=== PATIENT | female | born 2005 | race Caucasian/White ===

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

== ENCOUNTER 2023-12-31 17:25 | Emergency (ER) | payer MEDICAID, SELFPAY ==
[2023-12-31 17:28] VITALS: BP 123/45; PULSE 92; RESP 16; TEMP 37.1; O2SAT 98
--- NOTE | 2023-12-31 17:37 | ED.GENADUL_ITS ---
Discharge Plan Disposition Patient Disposition: Home Condition: Improving Discharge Details Chief Complaint: Abd Prob Clinical Impression: Gastroenteritis Primary Care Provider: Glendy Gudino ED Provider: Ken Bowden Home Meds and New Rx's Prescriptions: No Action benzoyl peroxide 5 % gel 1 applic topical DAILY Qty: 90 2RF Rx Instructions: Apply daily tretinoin 0.05 % lotion 1 applic topical QHS Qty: 45 2RF Rx Instructions: Apply nightly Mirena 20 mcg/24 hours (5 yrs) 52 mg intrauterine device 1 device intrauterine ONCE Rx Instructions: as a single dose albuterol sulfate 90 mcg/actuation aerosol powdr breath activated 2 inh inhalation Q4H PRNQty: 1 0RF ondansetron 4 mg tablet,disintegrating 4 mg PO .q8hr PRN Patient Comments: DISSOLVE ONE TABLET ON THE TONGUE EVERY 8 HOURS NEEDED FOR NAUSEA AND VOMITING Discharge Instructions Instructions: Gastroenteritis (ED) HPI General Date/Time Provider Initiated Documentation: 12/31/23 17:26 . HPI Narrative: 18-year-old female presents with nausea vomiting diarrhea over the last day. Feels chilled. Abdominal pain generalized in nature. No history of abdominal surgeries. Related Data Home Medications Medication Instructions Recorded Confirmed levonorgestrel 21 mcg/24 hours (8 1 device intrauterine ONCE 07/21/20 12/31/23 yrs) 52 mg intrauterine device (Mirena) benzoyl peroxide 5 % topical gel 1 applic topical DAILY #90 grams 10/21/21 12/31/23 tretinoin 0.05 % lotion 1 applic topical QHS #45 grams 10/21/21 12/31/23 albuterol sulfate 90 mcg/actuation 2 inh inhalation Q4H PRN #1 ea 10/11/22 12/31/23 breath activated powder inhaler ondansetron 4 mg disintegrating 4 mg PO .q8hr PRN 12/31/23 12/31/23 tablet Previous Rx's Medication Instructions Recorded benzoyl peroxide 5 % topical gel 1 applic topical DAILY #90 grams 10/21/21 tretinoin 0.05 % lotion 1 applic topical QHS #45 grams 10/21/21 albuterol sulfate 90 mcg/actuation 2 inh inhalation Q4H PRN #1 ea 10/11/22 breath activated powder inhaler Allergies Allergy/AdvReac Type Severity Reaction Status Date / Time No Known Allergies Allergy Verified 12/31/23 17:29 General Stated Complaint: Abd Prob CHIDI: 3 Review of Systems Narrative: Review of Systems Constitutional: negative Eyes: negative ENT: negative Cardiovascular: negative Respiratory: negative Gastrointestinal: Nausea vomiting diarrhea : negative Musculoskeletal: negative Skin: negative Neurologic: negative Psych: negative Exam Narrative Exam Narrative: Physical Examination General: alert, awake, cooperative, appears uncomfortable HEENT: normocephalic, atraumatic; PERRL, EOM intact, conjunctiva normal; no nasal discharge; moist mucous membranes, oral and pharyngeal mucosa normal, tolerating secretions Neck: supple, trachea midline; full ROM Chest: normal to inspection Respiratory: normal respiratory effort, speaking in full sentences, clear to auscultation, no wheezing, rales or rhonchi Cardiac: regular rate, regular rhythm, S1S2 intact, no murmurs rubs or gallops GI: abdomen soft, non-tender, non-distended; no palpable mass or hepatosplenomegaly Skin: no lesions, rashes or trauma appreciated Neuro: AAOx3, normal speech, moving all extremities Course Vital Signs Vital signs: Vital Signs Temperature 37.1 C 12/31/23 17:28 Pulse 92 H 12/31/23 17:28 Respiratory Rate 16 12/31/23 17:28 Blood Pressure 123/45 L 12/31/23 17:28 Pulse Oximetry 98 12/31/23 17:28 Temperature 37.1 C 12/31/23 17:28 Temperature Source Oral 12/31/23 17:28 Pulse 92 H 12/31/23 17:28 Respiratory Rate 16 12/31/23 17:28 Blood Pressure 123/45 L 12/31/23 17:28 Blood Pressure Position Sitting 12/31/23 17:28 Pulse Oximetry 98 12/31/23 17:28 Oxygen Delivery Method Room Air 12/31/23 17:28 Oxygen Flow Rate 0 12/31/23 17:28 Pain Level 7 12/31/23 17:28 Medical Decision Making 18-year-old female presents with nausea vomiting diarrhea abdominal discomfort, sensation of chills, hemodynamically stable however appears uncomfortable, abdomen soft nontender nondistended nonperitoneal, consider viral gastroenteritis versus foodborne illness versus colitis versus enteritis versus must consider appendicitis versus cholecystitis. Will obtain basic labs, urinalysis, fluids antiemetics close reassessment if no improvement consider imaging 21: 32 patient was comfortably no acute distress labs imaging largely unremarkable. Likely gastroenteritis viral in nature. Home care instructions and return precautions given Quality:SDOH Health Related Social Needs: No Data to Display PFSH All Active Problems (Updated 12/31/23 @ 21:33 by Ken Bowden MD) Gastroenteritis (Acute) GERD (gastroesophageal reflux disease) (Chronic) Acne (Acute) Anxiety (Chronic) Depression (Chronic) suicidal ideations: 2017 Medical History Concussion (03/20/19) COVID-19 11/2021 moderate symptoms, vaccinated Grieving family (~04/2018) Father recently from [place] while Nettie was in [place] for [place]. Suicidal ideation admit 2017 Family History Mother Healthy adult Father Healthy adult Sister No problems noted. Grandfather Diabetes MGF Grandmother Heart disease s/p triple cardiac bypass Hyperlipidemia MGM Other No problems noted. Social History Smoking/Tobacco Use Status: Former Tobacco Use Smoking risk assessment performed?: Yes (OUTSIDE) Alcohol Intake: current Alcohol Intake frequency: holidays/special occasions only Drug use: Occasionally Substance use type: marijuana Housing: apartment Pets and animals: Yes Pets and animals: cat(s), dog(s) and turtle(s) Seatbelt use: always Helmet use: Yes Helmet use: sometimes Water heater temp set <120 deg: Yes Fire extinguisher in home: Yes Carbon monox detector in home: Yes Firearms in home: No Do you feel safe at home: Yes Do you feel safe in your relationship?: Yes
[2023-12-31] MEDS: Ondansetron 4 MG/2 ML VIAL IVP (18:01)
[2023-12-31 18:07] LABS: Abs Immature Grans 0.05 10^3/uL (0.0-0.06); Absolute Basophil Count 0.03 10^3/uL (0.0-0.2); Absolute Eosinophil Count 0.14 10^3/uL (0.0-0.7); Absolute Monocyte Count 0.71 10^3/uL (0.1-0.8); Absolute Neutrophil Count 11.04 10^3/uL (1.2-6.7); Basophils % 0.2; Eosinophils % 1.1; HCT 41.2 % (36.0-46.0); HGB 14.4 g/dL (11.2-15.7); Immature Grans % 0.4; Lymphocytes % 8.4; MCH 29.6 pg (27.0-33.0); MCV 85 fL (80-95); MPV 11.3 fL (8.0-11.0); Monocytes % 5.4; Neutrophils % 84.5; Platelet Count 161 10^3/uL (130-400); RBC 4.86 10^6/uL (3.93-5.22); RDW-SD 36.5 fL; WBC 13.07 10^3/uL (4.4-10.8)
[2023-12-31] MEDS: Normal Saline 1,000 ML 1000 ML IV ×2 (18:12→20:06)
[2023-12-31 18:51] LABS: ALT 16 U/L (14-59); AST 11 U/L (15-37); Albumin 3.7 g/dL (3.4-5.0); Alkaline Phosphatase 58 U/L (46-116); Anion Gap 10.1 mmol/L (3-11); BUN 6 mg/dL (7-18); Bilirubin, Total 0.9 mg/dL (0.2-1.0); CO2 24.9 mmol/L (21.0-32.0); CREATININE 0.9 mg/dL (0.55-1.02); Calcium 8.3 mg/dL (8.5-10.1); Chloride 106 mmol/L (98-107); Estimated GFR 93.86 (mL/min/1.73m2); Glucose 93 mg/dL (74-106); Lipase 24 U/L (16-77); Potassium 3.5 mmol/L (3.5-5.1); Sodium 141 mmol/L (136-145); Total Protein 6.6 g/dL (6.4-8.2)
[2023-12-31 19:45] LABS: Bilirubin Negative (Negative); Blood Negative (Negative); Clarity Clear (Clear); Glucose Negative (Negative); Ketones 15 mg/dL (Negative); Leukocyte Esterase Negative (Negative); Nitrite Negative (Negative); Specific Gravity 1.025 (1.005-1.025); Urobilinogen 0.2 mg/dL (Up to 0.2)
--- NOTE | 2023-12-31 19:45 | DI.CT_ITS ---
Exam(s) CT ABDOMEN PELVIS W EXAM: CT ABDOMEN PELVIS W CLINICAL HISTORY: nausea vomiting diarrhea. TECHNIQUE: Imaging Protocol: Axial computed tomography images with coronal and sagittal reformatted images were created and reviewed CONTRAST MATERIAL: Intravenous: Omnipaque-350 100cc Oral: None COMPARISON: CT CT ABDOMEN PELVIS W from 05/17/2021 FINDINGS: VISUALIZED LUNG BASES: No nodules nor pleural effusions evident. ABDOMEN: There is no ascites. There is mild stranding of the mesenteric fat at the level of the ligament of T nicholas. There are few slightly prominent left para-aortic lymph nodes below this level. LIVER: There are no focal hepatic lesions evident. No dilated intrahepatic ducts. GALLBLADDER/BILIARY: No obvious gallbladder pathology. CBD is not dilated. PANCREAS: No evidence of pancreatic mass nor dilatation of the pancreatic duct. SPLEEN: Spleen is not enlarged. No obvious intrasplenic lesions. Splenic and portal veins are paten t. ADRENALS: There are no significant adrenal masses. KIDNEYS:No cysts evident. No solid renal masses. No calculi nor hydronephrosis.. ABDOMINAL AORTA: Abdominal aorta is not enlarged. LYMPH NODES:As above. There few slightly enlarged lymph nodes left para-aortic region ABDOMINAL WALL: No evidence of significant anterior abdominal wall nor inguinal hernia. GI: There is no evidence of bowel obstruction, free air, nor abscess. PELVIS: GI: No evidence of appendicitis.No evidence of sigmoid diverticulitis. LYMPH NODES: There is no intrapelvic nor inguinal adenopathy. REPRODUCTIVE: There is an IUD again noted in the uterus which remains in satisfactory position within the endometrial canal of the anteverted uterus. Ovaries appear age-appropriate size. There is a cy st in the inferior aspect of the right ovary measuring 3.8 by 2.9 cm by 2.8 cm. Probably dominant fo llicular cyst. There is no free fluid in the pelvis. URINARY BLADDER: Unremarkable. There is a round calcification measuring 4 mm in the region of the lo wer left ureter. Is difficult to determine if this is a calculus in the vicinity of the left uretero vesical junction or a new phlebolith which was not evident on the prior CT study of 05/17/2021. Neve rtheless, there is no dilatation of the left collecting system above this level. OSSEOUS: No fractures and no significant osseous lesions. IMPRESSION: 1. Left-sided 4 millimeter pelvic calcification intimately associated with the left ureterovesical ju nction region but probably representing a new phlebolith as opposed to a calculus within the lower le ft ureter. There is no dilatation of the collecting system above this level 2. IUD remains in satisfactory position within the uterine canal. There is a 3.8 cm simple appearing probable follicular cyst in the right ovary. No surrounding free fluid. 3. No evidence of appendicitis nor diverticulitis. 4. There are unchanged left para-aortic densities. Possibly slightly prominent lymph nodes although the appearance may suggest that these are veins coming from the left iliac vein and draining into the left renal vein. These are unchanged from 05/17/2021. RADIATION DOSE DELIVERED: 1,067.59mGy.cm Total DLP DATA REPOSITORY: All CT scans at this facility are submitted to the National Radiology Data Registry (NRDR) Dose Index Registry (DIR) with the [employer] (ACR). RADIATION OPTIMIZATION: All CT scans at this facility use at least one of these dose optimization te chniques: automated exposure control; mA and/or kV adjustment per patient size (includes targeted exa ms where dose is matched to clinical indication); or iterative reconstruction.
[2023-12-31] MEDS: ACETAMINOPHEN 1,000 MG/100 ML BTL 400 MG IVPB (20:05)
[2023-12-31] MEDS: Famotidine 20 MG/2 ML VIAL IVP (20:06)
[2023-12-31] MEDS: Omnipaque 350 MG/ML 100 ML BTL IJ (20:08)
[2023-12-31] MEDS: Normal Saline - Diluent 50 ML VIAL IJ (20:09)
[2023-12-31] MEDS: Normal Saline Flush 10 ML SYR IVP (20:10)
--- NOTE | 2023-12-31 20:54 | DI.VRAD_ITS ---
PROCEDURE INFORMATION: Exam: CT Abdomen And Pelvis With Contrast Exam date and time: 12/31/2023 8:13 PM Age: 18 years old Clinical indication: Nausea and vomiting; Abdominal pain; Localized; Lower; Patient HX: Nausea, vomiting and diarrhea TECHNIQUE: Imaging protocol: Computed tomography of the abdomen and pelvis with contrast. Radiation optimization: All CT scans at this facility use at least one of these dose optimization techniques: automated exposure control; mA and/or kV adjustment per patient size (includes targeted exams where dose is matched to clinical indication); or iterative reconstruction. Contrast material: OMNIPAQUE 350; Contrast volume: 100 ml; Contrast route: INTRAVENOUS (IV); COMPARISON: CT ABDOMEN PELVIS W 05/17/2021 6:51 PM FINDINGS: Tubes, catheters and devices: T-shaped contraceptive device is appropriately seated within the uterus. Lungs: Lung bases are clear as visualized. Heart: Base of heart is unremarkable as visualized. Liver: Normal. No mass. Gallbladder and bile ducts: Gallbladder is distended without CT evidence to support cholecystitis. Pancreas: Normal. No ductal dilation. Spleen: Normal. No splenomegaly. Adrenal glands: Normal. No mass. Kidneys and ureters: See Bones/joints finding. Stomach and bowel: Unremarkable. No obstruction. No mucosal thickening. Appendix: No evidence of appendicitis. Intraperitoneal space: Unremarkable. No free air. No significant fluid collection. Vasculature: Unremarkable. No abdominal aortic aneurysm. Lymph nodes: Unremarkable. No enlarged lymph nodes. Urinary bladder: Unremarkable as visualized. Reproductive: Right adnexal cyst within the physiologic size range. Reaching up to 3.4 cm. Bones/joints: Within the left hemipelvis there is a round 4 mm calcification in the vicinity of the descending left ureter, however there is no significant surrounding inflammatory stranding, no upstream ureterectasis. No delayed nephrogram or hydronephrosis to support obstructive left nephrolithiasis on this examination. Soft tissues: Unremarkable. IMPRESSION: 1. Likely new left hemipelvis phleboliths without evidence to support obstructive nephrolithiasis on this examination. Correlate with clinical signs and symptoms. 2. Additional findings as above. Dictated and Authenticated by: Gustavo Larsen MD. Ordering:TRISTON Rogers MD
[2023-12-31] MEDS: Ondansetron O.D.T. 4 MG TABEF, 3 TABS/BTL PO (21:47)
== END 2023-12-31 21:46 | disposition home or self-care (01) ==
PROVIDERS: Emergency Provider Emergency Medicine
DX: K52.9 Noninfective gastroenteritis and colitis, unspecified (principal); Z87.891 Personal history of nicotine dependence
CPT/HCPCS: 80053; 81025; 83690; 96361; 96374; 96375; 99285; 74177; 81003; 85025; 99284; J0131; J2405; J3490

== ENCOUNTER 2024-02-07 09:08 | Emergency (ER) | payer MEDICAID, SELFPAY ==
[2024-02-07 09:16] VITALS: BP 144/78; PULSE 87; RESP 16; TEMP 37; O2SAT 100
--- NOTE | 2024-02-07 10:01 | W.ED.GENAD ---
Discharge Plan Disposition Patient Disposition: Home Condition: Good Discharge Details Clinical Impression: Cellulitis and abscess of buttock, Abscess, perianal Primary Care Provider: Glendy Gudino ED Provider: Cornelia Dominguez Home Meds and New Rx's Prescriptions: New amoxicillin-pot clavulanate 875-125 mg tablet 1 tab PO BID Qty: 14 0RF Continued benzoyl peroxide 5 % gel 1 applic topical DAILY Qty: 90 2RF Hold Instructions: Pt Stopped/Never Started Rx Instructions: Apply daily tretinoin 0.05 % lotion 1 applic topical QHS Qty: 45 2RF Rx Instructions: Apply nightly Mirena 20 mcg/24 hours (5 yrs) 52 mg intrauterine device 1 device intrauterine ONCE Rx Instructions: as a single dose albuterol sulfate 90 mcg/actuation aerosol powdr breath activated 2 inh inhalation Q4H PRNQty: 1 0RF Discharge Instructions Instructions: Abscess (ED) Additional Instructions: Your abscess was drained today. Please complete the sitz bath's as we discussed 4-5 times daily. Encourage hydration. Tylenol and ibuprofen as needed for discomfort. After you have a bowel movement, you may find wet wipes or using water will help to cleanse the area more comfortably. Please take the antibiotics as prescribed. Please call general surgery to schedule follow-up appointment, number listed below. If you develop fever/chills, increased pain, or other new/worsening symptoms please seek care urgently once again. Stand Alone Forms: Work Release Referrals: Glendy Gudino MD [Primary Care Provider] - Maame Vargas DO [OSTEOPATHIC DOCTOR] - Discharge Data Discharge Date/Time-TO BE ENTERED AT DEPARTURE: 02/07/24 12:07 HPI <FATUMA Casey - Last Filed: 02/07/24 16:37> General Date/Time Provider Initiated Documentation: 02/07/24 09:44. Limitations to Documentation: no limitations. Information obtained by: patient. History of Present Illness 18 year old F presents to the emergency department with the chief complaint of cyst, pain near anus, described as severe, Quality is described as aching and sharp, and is localized to the buttocks. Patient reports no radiation. Patient started experiencing this day(s) and it has been constant. No relieving factors improve symptom(s), Movement worsens symptoms . Patient notes no other symptoms.. Patient did receive the following treatments prior to arrival, none Related Data Home Medications Medication Instructions Recorded Confirmed levonorgestrel 21 mcg/24 hours (8 1 device intrauterine ONCE 07/21/20 02/07/24 yrs) 52 mg intrauterine device (Mirena) benzoyl peroxide 5 % topical gel 1 applic topical DAILY #90 grams 10/21/21 02/07/24 tretinoin 0.05 % lotion 1 applic topical QHS #45 grams 10/21/21 02/07/24 albuterol sulfate 90 mcg/actuation 2 inh inhalation Q4H PRN #1 ea 10/11/22 02/07/24 breath activated powder inhaler amoxicillin 875 mg-potassium 1 tab PO BID #14 tabs 02/07/24 clavulanate 125 mg tablet Previous Rx's Medication Instructions Recorded benzoyl peroxide 5 % topical gel 1 applic topical DAILY #90 grams 10/21/21 tretinoin 0.05 % lotion 1 applic topical QHS #45 grams 10/21/21 albuterol sulfate 90 mcg/actuation 2 inh inhalation Q4H PRN #1 ea 10/11/22 breath activated powder inhaler amoxicillin 875 mg-potassium 1 tab PO BID #14 tabs 02/07/24 clavulanate 125 mg tablet Allergies Allergy/AdvReac Type Severity Reaction Status Date / Time No Known Allergies Allergy Verified 02/07/24 10:10 General Stated Complaint: Cellulitis CHIDI: 3 Review of Systems <FATUMA Casey - Last Filed: 02/07/24 16:37> Constitutional Constitutional: Reports as per HPI, Denies chills and Denies fever(s) Musculoskeletal Musculoskeletal: Reports as per HPI Integumentary/Breasts Skin/Breast: Reports as per HPI Exam <FATUMA Casey - Last Filed: 02/07/24 16:37> Const General: cooperative, healthy appearing, comfortable, no acute distress and well developed Nutritional Appearance: average body habitus and well nourished Orientation: alert and awake Resp Effort & Inspection: normal respiratory effort, able to speak in complete sentences and no respiratory distress Cardio Rate: regular rate Rhythm: regular rhythm GI Rectal Exam - female: tenderness Skin General skin exam: erythema and other (fluctuance) Full body images: 1. Area of swelling, erythema, fluctuance. Abuts the anus. No drainage. Neuro General: patient alert and patient awake Cognition: normal cognition Speech: speech normal Gait: normal gait Sensory Exam: no sensory deficits noted Course <FATUMA Casey - Last Filed: 02/07/24 16:37> Vital Signs Vital signs: Vital Signs Temperature 37.0 C 02/07/24 09:16 Pulse 87 02/07/24 09:16 Respiratory Rate 16 02/07/24 09:16 Blood Pressure 144/78 H 02/07/24 09:16 Pulse Oximetry 100 02/07/24 09:16 Temperature 37.0 C 02/07/24 09:16 Pulse 87 02/07/24 09:16 Respiratory Rate 16 02/07/24 09:16 Blood Pressure 144/78 H 02/07/24 09:16 Pulse Oximetry 100 02/07/24 09:16 Procedures <FATUMA Casey - Last Filed: 02/07/24 16:37> Abscess I/D Site: Alcira-rectal Side (if applicable): Right Sedation/analgesia: None (given anxiolytic prior to anxiety, no sedation) Local Anesthetic: Lidocaine 1% Amount of anesthesia used (mL): 2 Technique: Incised with #11 Blade Amount of fluid expressed (mL): 4 Irrigation: Yes Packing used?: None Medical Decision Making <FATUMA Casey - Last Filed: 02/07/24 16:37> Patient is a pleasant 18 female, otherwise healthy, presenting with chief complaint of cyst near her buttock region. She reports that this began about 5 days ago. She states that she often gets these types of lesions in the folds of her groin or in the axillary region. However, this 1 is an atypical presentation. States the pain has greatly increased. She denies any fevers or chills. Has not had a change in her bowel or bladder habits although wiping is difficult for her after a bowel movement. On exam, patiet appears anxious and uncomfortable. she has a fluctuant, tender area jolynn ghte right buttock near the anus. US was used showing fluid collection consistent with abscess, estimated to be 2cm in diameter. Small amount of surrounding cellulitis. Patient does nto appear septic. No indication of fistula at htis time. Given proximity to anus, evaluated by Dr. Birmingham as well, will consult with general surgery. Consulted with Dr. Vargas. Reviewed the case. 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 However, she advised that this does not change the management today as there is no other emergent management for this case. Advised bedside drainage and follow-up with them in the clinic. I discussed this with the patient. We discussed options for procedure. She is feeling very anxious and would prefer to have an anxiety lytic prior to having the procedure. Declines procedural sedation at this time. Will give p.o. Valium to help with her anxiety around this. We have LET on the area, discussed getting lido with epi and incision with drainage. test is negative. Dr. Vargas recommended p.o. Augmentin post procedure Patient I discussed risk/benefits as well as expected procedural steps associated with drainage. She voiced understanding and wishes to proceed. Please see procedure note. This did perform using standard sterile technique. 2 assistants were at bedside. Patient tolerated this well. Purulent discharge was expressed. Loculations were broken up. Abscess was flushed with sterile saline. Patient tolerated this well and dressing was applied. Discussed continued wound care. She will continue to do sitz bath's 4-5 times daily. Encourage hydration. Tylenol and ibuprofen as needed for discomfort. Will start her on Augmentin as advised by general surgery. Will give work note at patient's request. Referred to general surgery. She will call to schedule follow-up appointment. Return precautions were discussed. All of her questions and concerns were addressed and she is in agreement this plan. Quality:[facility] Health Related Social Needs: No Data to Display <Ash Birmingham MD - Last Filed: 02/07/24 15:58> Date: 02/07/24 Time: 11:09 Note: Patient seen, examined, and discussed with FATUMA Dominguez. I agree with treatment plan as discussed/documented. PFSH <FATUMA Casey - Last Filed: 02/07/24 16:37> All Active Problems (Updated 02/07/24 @ 12:01 by FATUMA Casey) Abscess, perianal (Acute) Cellulitis and abscess of buttock (Acute) GERD (gastroesophageal reflux disease) (Chronic) Acne (Acute) Anxiety (Chronic) Depression (Chronic) [facility] Medical History Concussion (03/20/19) COVID-19 11/2021 moderate symptoms, vaccinated Grieving family (~04/2018) Father recently from [place] while [place]ett[place] was in for SI. [facility] Family History Mother Healthy adult Father Healthy adult Sister No problems noted. Grandfather Diabetes MGF Grandmother Heart disease s/p triple cardiac bypass Hyperlipidemia MGM Other No problems noted. Social History Smoking/Tobacco Use Status: Former Tobacco Use Smoking risk assessment performed?: Yes (OUTSIDE) Alcohol Intake: current Alcohol Intake frequency: holidays/special occasions only Drug use: Occasionally Substance use type: marijuana Housing: apartment Pets and animals: Yes Pets and animals: cat(s), dog(s) and turtle(s) Seatbelt use: always Helmet use: Yes Helmet use: sometimes Water heater temp set <120 deg: Yes Fire extinguisher in home: Yes Carbon monox detector in home: Yes Firearms in home: No Do you feel safe at home: Yes Do you feel safe in your relationship?: Yes
[2024-02-07] MEDS: Lidocaine/Epinephri/Tetracaine Topical Gel 3 ML TP (10:43)
[2024-02-07] MEDS: diazePAM 5 MG TAB PO (10:53)
[2024-02-07] MEDS: Acetaminophen 325 MG TAB 650 MG PO (10:53)
[2024-02-07] MEDS: Ibuprofen 600 MG TAB PO (10:53)
--- NOTE | 2024-02-07 10:57 | NUR.NOTE ---
[facility]erral sent to [facility], for follow up on abscess and for a possible anal fistula in 2 weeks. Nursing Note:
== END 2024-02-07 12:07 | disposition home or self-care (01) ==
PROVIDERS: Emergency Provider Physician Assistant
DX: L03.317 Cellulitis of buttock (principal); L02.31 Cutaneous abscess of buttock; K61.0 Anal abscess; Z87.891 Personal history of nicotine dependence
CPT/HCPCS: 10060; 81025; 99283

== ENCOUNTER 2024-05-04 11:08 | Emergency (ER) | payer MEDICAID, SELFPAY ==
[2024-05-04 11:17] VITALS: BP 109/67; PULSE 73; RESP 14; TEMP 36.8; O2SAT 99
--- NOTE | 2024-05-04 11:29 | ED.GENADUL_ITS ---
Discharge Plan Disposition Patient Disposition: Home Discharge Details Clinical Impression: Acute foreign body of right ear Primary Care Provider: Unknown,Unknown ED Provider: Vito Nixon Home Meds and New Rx's Prescriptions: No Action benzoyl peroxide 5 % gel 1 applic topical DAILY Qty: 90 2RF Hold Instructions: Pt Stopped/Never Started Rx Instructions: Apply daily tretinoin 0.05 % lotion 1 applic topical QHS Qty: 45 2RF Rx Instructions: Apply nightly Mirena 20 mcg/24 hours (5 yrs) 52 mg intrauterine device 1 device intrauterine ONCE Rx Instructions: as a single dose albuterol sulfate 90 mcg/actuation aerosol powdr breath activated 2 inh inhalation Q4H PRNQty: 1 0RF cetirizine 10 mg tablet 10 mg PO DAILY Patient Comments: TAKE ONE TABLET BY MOUTH EVERY DAY Drysol Dab-O-Matic 20 % solution 1 applic TOPICAL QWEEK PRN Patient Comments: APPLY 1 TO 2 TIMES A WEEK AT BEDTIME NEEDED FOR HYPERHIDROSIS triamcinolone acetonide 0.1 % ointment 1 applic TOPICAL BID Patient Comments: APPLY OINTMENT TOPICALLY TO ARMPIT AREA TWO TIMES A DAY UNTIL IT IS HEALED azelastine 137 mcg (0.1 %) aerosol,spray 2 spray INTRANASAL BID Patient Comments: INSTILL 2 SPRAYS INTO EACH NOSTRIL TWICE DAILY FOR ALLERGIES fluticasone propionate 50 mcg/actuation spray,suspension 1 spray INTRANASAL DAILY Patient Comments: INSTILL 1 SPRAY INTO EACH NOSTRIL EVERY DAY FOR NASAL ALLERGIES Discharge Instructions Instructions: Foreign Body in Ear Additional Instructions: Please do not place anything in your ear as there is a potential to puncture your eardrum, because trauma to the canal itself or as in today's incident to have foreign object within the canal and thick cannot easily be removed. Monitor for any new or worsening symptoms and follow-up with primary care provider as needed Referrals: Primary Care Provider [Outside] Discharge Data Discharge Date/Time-TO BE ENTERED AT DEPARTURE: 05/04/24 11:36 HPI General Mode of arrival: ambulatory . Date/Time Provider Initiated Documentation: 05/04/24 11:24 . Limitations to Documentation: no limitations . Information obtained by: patient, family and RN notes reviewed . History of Present Illness 18 year old F presents to the emergency department with the chief complaint of Foreign object right ear canal, Patient started experiencing this minute(s) (18) No relieving factors improve symptom(s), No exacerbating factors reported . Patient notes no other symptoms.. Patient did receive the following treatments prior to arrival, none Related Data Home Medications Medication Instructions Recorded Confirmed levonorgestrel 21 mcg/24 hr (up to 1 device intrauterine ONCE 07/21/20 05/04/24 8 years) 52 mg intrauterine device (Mirena) benzoyl peroxide 5 % topical gel 1 applic topical DAILY #90 grams 10/21/21 05/04/24 tretinoin 0.05 % lotion 1 applic topical QHS #45 grams 10/21/21 05/04/24 albuterol sulfate 90 mcg/actuation 2 inh inhalation Q4H PRN #1 ea 10/11/22 05/04/24 breath activated powder inhaler aluminum chloride 20 % topical 1 applic topical QWEEK PRN 05/04/24 05/04/24 solution (Drysol Dab-O-Matic) azelastine 137 mcg (0.1 %) nasal 2 spray intranasal BID 05/04/24 05/04/24 spray aerosol cetirizine 10 mg tablet 10 mg PO DAILY 05/04/24 05/04/24 fluticasone propionate 50 1 spray intranasal DAILY 05/04/24 05/04/24 mcg/actuation nasal spray,suspension triamcinolone acetonide 0.1 % 1 applic topical BID 05/04/24 05/04/24 topical ointment Previous Rx's Medication Instructions Recorded benzoyl peroxide 5 % topical gel 1 applic topical DAILY #90 grams 10/21/21 tretinoin 0.05 % lotion 1 applic topical QHS #45 grams 10/21/21 albuterol sulfate 90 mcg/actuation 2 inh inhalation Q4H PRN #1 ea 10/11/22 breath activated powder inhaler Allergies Allergy/AdvReac Type Severity Reaction Status Date / Time No Known Allergies Allergy Verified 05/04/24 11:20 General Stated Complaint: EarProblem CHIDI: 4 Review of Systems ENT Ears, Nose, Mouth, and Throat: Reports as per HPI, Denies ear discharge and Reports otalgia Exam Const General: cooperative, no acute distress and not ill appearing Orientation: alert, awake and oriented x3 HENMT Head: normal to inspection and atraumatic Ears: hearing grossly normal bilaterally, external ears normal and EAC abnormal foreign body (Tip of cotton swab) on the right General nose exam: external nose normal Mouth: moist mucous membranes Resp Effort & Inspection: normal respiratory effort, able to speak in complete sentences and no respiratory distress Skin General skin exam: no rashes or lesions noted Neuro General: patient alert, patient awake, patient oriented x3 and moves all extremities Course Vital Signs Vital signs: Vital Signs Temperature 36.8 C 05/04/24 11:17 Pulse 73 05/04/24 11:17 Respiratory Rate 14 05/04/24 11:17 Blood Pressure 109/67 05/04/24 11:17 Pulse Oximetry 99 05/04/24 11:17 Temperature 36.8 C 05/04/24 11:17 Temperature Source Temporal Artery Scan 05/04/24 11:17 Pulse 73 05/04/24 11:17 Respiratory Rate 14 05/04/24 11:17 Blood Pressure 109/67 05/04/24 11:17 Blood Pressure Position Sitting 05/04/24 11:17 Pulse Oximetry 99 05/04/24 11:17 Oxygen Delivery Method Room Air 05/04/24 11:17 Oxygen Flow Rate 0 05/04/24 11:17 Pain Level 2 05/04/24 11:17 Procedures FB Removal Ear Location: ear canal (R) Foreign Body Suspected: other (Cotton swab tip) TM intact pre-procedure: unable to visualize Foreign Body Removed: yes Foreign Body Removal Technique: instrumentation Tympanic Membrane Intact: Yes Patient Tolerated Procedure: well and no complications Complications: none Medical Decision Making Patient presenting the emergency department for chief complaint of foreign body right ear. She states that her right ear canal started to itch so she went to use a Q-tip in to her ear to itch the area bothering her and the tip of the swab came off. Patient denies any injury or trauma, drainage from the ear, loss of hearing or other symptoms. Physical exam shows a cotton swab tip in the canal of the right ear with inability to view TM. Please see procedure note for removal which was uncomplicated and successful. After discussion of diagnosis and plan of care patient has no further needs, q uestions, or concerns and states clear understanding to return to the emergency department for any worsening symptoms. This documentation was generated using [employer] dictation system, please disregard any oddities of phrase or misspellings. Quality:[facility] Health Related Social Needs: No Data to Display PFSH All Active Problems Acute foreign body of right ear (Acute) Hidradenitis suppurativa (Acute) GERD (gastroesophageal reflux disease) (Chronic) Acne (Acute) Anxiety (Chronic) Depression (Chronic) suicidal ideations: 2017 Medical History COVID-19 11/2021 moderate symptoms, vaccinated Concussion (03/20/19) Grieving family (~04/2018) Father recently from [place] while Nettie was in [place] for SI. Suicidal ideation admit 2017 Family History Mother Healthy adult Father Healthy adult Sister No problems noted. Grandfather Diabetes MGF Grandmother Heart disease s/p triple cardiac bypass Hyperlipidemia MGM Other No problems noted. Social History Smoking/Tobacco Use Status: Former Tobacco Use Smoking risk assessment performed?: Yes (OUTSIDE) Alcohol Intake: current Alcohol Intake frequency: holidays/special occasions only Drug use: Occasionally Substance use type: marijuana Housing: apartment Pets and animals: Yes Pets and animals: cat(s), dog(s) and turtle(s) Seatbelt use: always Helmet use: Yes Helmet use: sometimes Water heater temp set <120 deg: Yes Fire extinguisher in home: Yes Carbon monox detector in home: Yes Firearms in home: No Do you feel safe at home: Yes Do you feel safe in your relationship?: Yes
[2024-05-04 11:34] VITALS: BP 109/67; PULSE 73; RESP 14; TEMP 36.8; O2SAT 99
[2024-05-04 11:36] VITALS: BP 109/67; PULSE 73; RESP 14; TEMP 36.8; O2SAT 99
== END 2024-05-04 11:36 | disposition home or self-care (01) ==
PROVIDERS: Emergency Provider Nurse Practitioner Family
DX: T16.1XXA Foreign body in right ear, initial encounter (principal)
CPT/HCPCS: 99282

== ENCOUNTER 2024-06-18 21:51 | Outpatient (REF) | payer MEDICAID, SELFPAY ==
[2024-06-18 22:10] LABS: ALT 21 U/L (14-59); AST 13 U/L (15-37); Albumin 4.6 g/dL (3.4-5.0); Alkaline Phosphatase 67 U/L (46-116); Anion Gap 11.7 mmol/L (3-11); BUN 4 mg/dL (7-18); Bilirubin, Total 0.54 mg/dL (0.2-1.0); CO2 26.3 mmol/L (21.0-32.0); CREATININE 0.8 mg/dL (0.55-1.02); Calcium 9.7 mg/dL (8.5-10.1); Chloride 104 mmol/L (98-107); Estimated GFR 108.11 (mL/min/1.73m2); Glucose 86 mg/dL (74-106); Potassium 3.7 mmol/L (3.5-5.1); Sodium 142 mmol/L (136-145); Total Protein 7.5 g/dL (6.4-8.2)
[2024-06-19 18:28] LABS: HBs Antibody, Quant <3.1 mIU/mL (See Note); Hepatitis B Surface Ab Negative (See Note)
[2024-06-19 19:11] LABS: HIV-1/2 Ag & Ab Screen Negative (Negative)
[2024-06-19 19:13] LABS: Hepatitis C Ab w Rflx HCV PCR Negative (Negative)
[2024-06-19 19:22] LABS: Hepatitis B Surface Ag Negative (Negative)
== END 2024-06-18 21:52 | disposition home or self-care (01) ==
LOC: LBN 21:51
PROVIDERS: Visit Provider Nurse Practitioner Family
DX: Z77.21 Contact with and (suspected) exposure to potentially hazardous body fluids (principal); Z11.4 Encounter for screening for human immunodeficiency virus [HIV]; Z11.59 Encounter for screening for other viral diseases
CPT/HCPCS: 80053; 86706; 86803; 87340; 87389

== ENCOUNTER 2025-09-05 08:58 | Emergency (ER) | payer OTHER, SELFPAY ==
[2025-09-05 09:00] VITALS: BP 136/95; PULSE 116; RESP 18; TEMP 36.7; O2SAT 97
--- NOTE | 2025-09-05 09:38 | W.ED.GENAD ---
Discharge Plan Disposition Patient Disposition: Home Condition: Stable Discharge Details Clinical Impression: Anxiety, Depression Primary Care Provider: None,None ED Provider: Kyaw Caldera Home Meds and New Rx's Prescriptions: Continued benzoyl peroxide 5 % gel 1 applic topical DAILY Qty: 90 2RF Rx Instructions: Apply daily tretinoin 0.05 % lotion 1 applic topical QHS Qty: 45 2RF Rx Instructions: Apply nightly Mirena 20 mcg/24 hours (5 yrs) 52 mg intrauterine device 1 device intrauterine ONCE Rx Instructions: as a single dose albuterol sulfate 90 mcg/actuation aerosol powdr breath activated 2 inh inhalation Q4H PRNQty: 1 0RF cetirizine 10 mg tablet 10 mg PO DAILY Patient Comments: TAKE ONE TABLET BY MOUTH EVERY DAY Drysol Dab-O-Matic 20 % solution 1 applic TOPICAL QWEEK PRN Patient Comments: APPLY 1 TO 2 TIMES A WEEK AT BEDTIME NEEDED FOR HYPERHIDROSIS triamcinolone acetonide 0.1 % ointment 1 applic TOPICAL BID Patient Comments: APPLY OINTMENT TOPICALLY TO ARMPIT AREA TWO TIMES A DAY UNTIL IT IS HEALED azelastine 137 mcg (0.1 %) aerosol,spray 2 spray INTRANASAL BID Patient Comments: INSTILL 2 SPRAYS INTO EACH NOSTRIL TWICE DAILY FOR ALLERGIES fluticasone propionate 50 mcg/actuation spray,suspension 1 spray INTRANASAL DAILY Patient Comments: INSTILL 1 SPRAY INTO EACH NOSTRIL EVERY DAY FOR NASAL ALLERGIES amoxicillin 500 mg capsule 500 mg PO Q8H Patient Comments: TAKE TWO CAPSULE BY MOUTH NOW; THEN TAKE ONE CAPSULE BY MOUTH EVERY 8 HOURS UNTIL GONE Discharge Instructions Instructions: Suicide Prevention, Tips on Positive Thinking, Anxiety, Adult ED, Depression in adults - Discharge instructions Additional Instructions: At this time you have been given a medical screening examination. You were then evaluated by the [facility] human service team. A safety plan to return home has been made. Both you and her mother are comfortable with this plan. They will begin your intake for both short and long-term therapy as well as medication management upon discharge from the ER at the [facility]. Please watch for new or worsening symptoms and return immediately to the ER. HPI General Mode of arrival: ambulatory. Date/Time Provider Initiated Documentation: 09/05/25 09:05. Limitations to Documentation: no limitations. Information obtained by: patient. History of Present Illness 19 year old F presents to the emergency department with the chief complaint of Depression and SI, described as severe, with intensity rated at 7. Quality is described as other (Left lower jaw pain), and is localized to the mouth and left. Patient reports no radiation. Patient started experiencing this week(s) (2) and it has been other (Progressive). No relieving factors improve symptom(s), No exacerbating factors reported . Patient notes other (Poor appetite). Patient did receive the following treatments prior to arrival, other (Amoxicillin) Related Data Home Medications Medication Instructions Recorded Confirmed levonorgestrel (Mirena) 1 device intrauterine ONCE 07/21/20 09/05/25 benzoyl peroxide 5 % topical gel 1 applic topical DAILY #90 grams 10/21/21 09/05/25 tretinoin 0.05 % lotion 1 applic topical QHS #45 grams 10/21/21 09/05/25 albuterol sulfate 90 mcg/actuation 2 inh inhalation Q4H PRN #1 ea 10/11/22 09/05/25 breath activated powder inhaler aluminum chloride 20 % topical 1 applic topical QWEEK PRN 05/04/24 09/05/25 solution (Drysol Dab-O-Matic) azelastine 137 mcg (0.1 %) nasal 2 spray intranasal BID 05/04/24 09/05/25 spray cetirizine 10 mg tablet 10 mg PO DAILY 05/04/24 09/05/25 fluticasone propionate 50 1 spray intranasal DAILY 05/04/24 09/05/25 mcg/actuation nasal spray,suspension triamcinolone acetonide 0.1 % 1 applic topical BID 05/04/24 09/05/25 topical ointment amoxicillin 500 mg capsule 500 mg PO Q8H 09/05/25 09/05/25 Previous Rx's Medication Instructions Recorded benzoyl peroxide 5 % topical gel 1 applic topical DAILY #90 grams 10/21/21 tretinoin 0.05 % lotion 1 applic topical QHS #45 grams 10/21/21 albuterol sulfate 90 mcg/actuation 2 inh inhalation Q4H PRN #1 ea 10/11/22 breath activated powder inhaler Allergies Allergy/AdvReac Type Severity Reaction Status Date / Time Tetanus Vaccines and Toxoid Allergy Other (See Unverified 09/05/25 09:04 Comment) General Stated Complaint: Anxiety CHIDI: 3 Review of Systems Constitutional Constitutional: Denies chills, Denies fatigue, Denies fever(s) and Denies weakness ENT Ears, Nose, Mouth, and Throat: Reports mouth pain Cardiovascular Cardiovascular: Denies chest pain and Denies dyspnea Respiratory Respiratory: Denies dyspnea Gastrointestinal Gastrointestinal: Denies abdominal pain, Denies diarrhea, Reports nausea and Denies vomiting Genitourinary Genitourinary: Denies dysuria Musculoskeletal Musculoskeletal: Denies back pain Integumentary/Breasts Skin/Breast: Denies rash Neurologic Neurologic: Denies weakness Psychiatric Psychiatric: Reports anxiety, Reports change in appetite, Reports depression, Reports hopelessness, Reports irritability, Denies homicidal ideation and Reports suicidal ideation Endocrine Endocrine: Denies fatigue Exam Const General: cooperative, healthy appearing, comfortable and no acute distress Orientation: alert, awake and oriented x3 HENMT Head: normal to inspection, normocephalic and atraumatic General nose exam: external nose normal Face and sinus: normal facial exam Mouth: oral mucosae normal and moist mucous membranes Teeth and gingiva: fair dentition Throat: posterior oropharynx normal Eyes General: appearance normal, both eyes and all related structures Conjunctivae: conjunctivae normal Neck Neck: normal visual inspection, full ROM, no meningeal signs, trachea midline and supple Resp Effort & Inspection: normal respiratory effort and able to speak in complete sentences Auscultation: clear to auscultation bilaterally Cardio Rate: regular rate Rhythm: regular rhythm GI Palpation: soft, not firm, no guarding, not rigid and nontender Back/Spine/Pelvis Back: no CVA tenderness and No back tenderness Skin General skin exam: no rashes or lesions noted Neuro General: patient alert, patient awake, patient oriented x3, moves all extremities and no focal motor deficits Cognition: normal cognition Speech: speech normal Gait: normal gait Motor: muscle tone normal throughout Sensory Exam: no sensory deficits noted Extrem General: normal to inspection, full ROM, capillary refill normal and no calf tenderness Psych Appearance: grossly normal Mental Status: mental status grossly normal Speech and Movement: speech and movement normal Mood: anxious mood and dysthymic mood Affect: sad Attitude: cooperative Thought Process: normal Thought Content: suicidality (Passively) Insight: fair Judgment: fair Course Vital Signs Vital signs: Vital Signs Temperature 36.7 C 09/05/25 09:00 Pulse 116 H 09/05/25 09:00 Respiratory Rate 18 09/05/25 09:00 Blood Pressure 136/95 H 09/05/25 09:00 Pulse Oximetry 97 09/05/25 09:00 Temperature 36.7 C 09/05/25 09:00 Pulse 116 H 09/05/25 09:00 Respiratory Rate 18 09/05/25 09:00 Respiratory Effort Normal 09/05/25 09:28 Respiratory Depth Normal 09/05/25 09:28 Respiratory Pattern Normal 09/05/25 09:28 Blood Pressure 136/95 H 09/05/25 09:00 Pulse Oximetry 97 09/05/25 09:00 Medical Decision Making This is a 19-year-old female with a past medical history of anxiety and depression, vapes and smokes marijuana daily, denies alcohol or drug use. She presents today with increased stress regarding her relationship with her boyfriend, having not slept well in the last week or so, decreased appetite, and now vague passive suicidal thoughts. She states that she feels like her friends and family may be better without her around but she does not have any active thoughts or plans to harm herself. She does admit to some self cutting when she was in eighth grade which resulted in a psychiatric hospitalization and then. Her father was diagnosed with schizophrenia and bipolar and she is concerned that she could be following in the same footsteps although she has not had a formal diagnosis. She did have a therapist as a teenager but that therapist unfortunately and she did not ever engage in therapy again. She lives at home with her mother and younger sister who are typically good resources but admits that her mother is having a hard time helping given her prior trauma dealing with her father schizophrenia and passing away. She is on amoxicillin for a left lower dental infection/nish. Patient recently had a filling which failed, is scheduled for a root canal next week. No active facial swelling, difficulty speaking or swallowing, or fever. She is anxious and tearful otherwise appears well, nontoxic. Using the safe screening form, laboratory values are not necessary. Will order a one-on-one director food safety as well as a safety plan, will request a [facility] mental health evaluation. Mother is now present and very supportive. [facility] evaluated the patient, please see their note. Plan is to safety plan the patient home, both patient and mother are comfortable with this. They will begin their intake with [facility] to initiate med control, both short and long-term therapy. Patient has no active suicidal ideations. She does not want to harm herself. She is very grateful to now know her local resources and treatment options. She was encouraged to return to the ER for new or worsening symptoms. Standard discharge and return precautions were provided. Patient understands, is agreeable to this plan, and has no additional questions or concerns upon discharge. This documentation was generated using [employer] system, please disregard any oddities of phrase or misspellings. Medical Records Medical records reviewed: Yes I reviewed the patient's medical records. PFSH All Active Problems (Updated 09/05/25 @ 11:56 by FATUMA Noland) Hidradenitis suppurativa (Acute) GERD (gastroesophageal reflux disease) (Chronic) Acne (Acute) Anxiety (Chronic) Depression (Chronic) suicidal ideations: blaise 2017 Medical History COVID-19 11/2021 moderate symptoms, vaccinated Concussion (03/20/19) Grieving family (~04/2018) Father recently from [place] while Nettie was in for SI. Suicidal ideation admit gera 2017 Family History Mother Healthy adult Father Healthy adult Sister No problems noted. Grandfather Diabetes MGF Grandmother Heart disease s/p triple cardiac bypass Hyperlipidemia MGM Other No problems noted. Social History Smoking/Tobacco Use Status: Current every day Tobacco Type: e-cigarettes Smoking risk assessment performed?: Yes (OUTSIDE) Alcohol Intake: current Alcohol Intake frequency: holidays/special occasions only Drug use: Occasionally Substance use type: marijuana Housing: apartment Pets and animals: Yes Pets and animals: cat(s), dog(s) and turtle(s) Seatbelt use: always Helmet use: Yes Helmet use: sometimes Water heater temp set <120 deg: Yes Fire extinguisher in home: Yes Carbon monox detector in home: Yes Firearms in home: No Do you feel safe at home: Yes Do you feel safe in your relationship?: Yes
--- NOTE | 2025-09-05 14:26 | PDOC.MHPN2 ---
Date of service: 09/05/25 Time of Service: 10:50 PHQ-9 Over the last 2 weeks, how often have you been bothered by any of the following problems? 1. Little interest or pleasure in doing things: several days 2. Feeling down, depressed, or hopeless: more than half the days 3. Trouble falling or staying asleep, or sleeping too much: nearly every day 4. Feeling tired or having little energy: several days 5. Poor appetite or overeating: several days 6. Feeling bad about yourself - or that you are a failure or have let yourself and your family down: several days 7. Trouble concentrating on things, such as reading the newspaper or watching television: several days 8. Moving or speaking so slowly that other people could have noticed? - Or the opposite - being so fidgety or restless that you have been moving around a lot more than usual: nearly every day 9. Thoughts that you would be better off or of hurting yourself in some way: several days Total score: 14 If you checked off any problems, how difficult have these problems made it for you to do your work, take care of things at home, or get along with other people?: very difficult PHQ-9 Results: Positive Source: Developed by Drs. Ricardo Wong, Loulou Causey, Henrique Pressley and colleagues, with an educational john paul from [employer]. Suicide Severity Rate CSSRS Have you wished you were or wished you could go to sleep and not wake up?: Yes Have you actually had any thoughts of killing yourself?: No CSSRS2 Have you been thinking about how you might do this?: No Have you had these thoughts and had some intention of acting on them?: No Have you started to work out or worked out the details of how to kill yourself? Do you intend to carry out this plan?: No CSSRS3 Have you ever done anything, started to do anything or prepared to do anything to end your life?: No CSSRS4 Was this within the past three months?: No Screening Score Total Score: 2 Screening: Positive Mental Health Emergency Note Release [facility] release signed:: Yes Reason for Visit MS Robins is a 19 year old single female who resides with her mother and sister in a trailer [place] [facility]. The client reports that her boyfriend has been living with her disappeared three days ago and left. The client states that she has been having anxiety around her father's overdose. The client reports her father experienced mood swings and paranoia. The client states that her father overdosed and while she was at [place] when she was 12 years old. The client states that she has a therapist who she was able to see through her school and who also and that connecting and finding a therapist has been difficult. The client reports that she has been crying and having panic attacks along with shaking and not sleeping due to her anxiety. This clinician reviewed DBT skills for anxiety with the client. The client reports that she wants help. The client expressed wanting medication management and therapy. This clinician worked with the client to create a safety plan and then a plan to meet the client at [facility] to do a clinical assessment and get her in the system for medication management and therapy. In the last 2 weeks has the pt presented for ES prior to today?: No Safety Risk/Harm to Self or Others Current Ideation to Harm Self or Others: Yes to self. Intent: no, has no intent. Plan: no.does not have a plan. History of suicide attempt: No history of suicide attempt reported Asssessment/Mental Status Appearance: Well groomed Attitude: Cooperative and Friendly Behavior: Unremarkable Speech: Normal Affect: Normal Mood: Stressed and Anxious Thought process: Goal directed Hallucinations: No evidence Delusions: No evidence Attention: Unremarkable Perception: Not impaired Orientation: Fully orientated Memory: Intact Insight: Good Judgement: Fair Neurovegetative Symptoms Sleep: Decrease Appetitie: Decrease Interests: Decrease Energy: Decrease Substance Use: Do you use nicotine?: Yes Additional Issues: Assaultive/Threatening Behavior: No Medical Concerns: No Client engaged in active self harm w/weapon: No Threatening to run away: No Child reported abuse/neglect: No Voluntarily presenting for services: Yes Domestic violence is a concern: No Extreme Psychosis or extreme behavior is present: No Plan/Disposition Recommended Disposition: [facility] Services [facility] Services: Therapy. Plan: The client is safety planning to go do a clinical assessment with this clinician at [facility] and get in for therapy and medication management. Reports/communication Outcome discussed with: ED/Personnel
== END 2025-09-05 12:05 | disposition home or self-care (01) ==
PROVIDERS: Emergency Provider Physician Assistant
DX: F41.9 Anxiety disorder, unspecified (principal); F32.9 Major depressive disorder, single episode, unspecified
CPT/HCPCS: 99283 ×2; 00123; 96127

== ENCOUNTER 2025-10-31 15:54 | Outpatient (REF) | payer OTHER, SELFPAY ==
--- NOTE | 2025-10-31 15:10 | PAPFT_PTH ---
PATIENT: Nettie Robins LOC: [facility] U#:[id number] AGE/SX: 20/F ROOM: RE10/31/[address]: Lucille Boogie : 2005 BED: DIS: 10/31/2025 SPEC #: [id number] RECD: 11/03/25 13:26 STATUS: [facility] REQ #: [id number] SAMUEL: 10/31/25 15:[address]: Lucille Boogie DEPT: COUNTS INCLUDE 234 BEDS AT THE [facility] Cytology RECD BY: Asiya Bella ENTERED: 11/03/25 13:27 SP TYPE: PAPFT OTHR DR: Unknown,Unknown Tissues: 1 - CX/ENDOCX FOR PAP SMEARS Procedures: PAP THIN PREP/[facility] Screening Comments: [id number] (CHLAMYDIA/GC)
[2025-11-04 11:19] LABS: Chlamydia Result Negative (Negative); GC Result Negative (Negative)
== END 2025-10-31 15:55 | disposition home or self-care (01) ==
LOC: LBN 15:54
PROVIDERS: Visit Provider Advanced Practice Midwife
DX: Z12.4 Encounter for screening for malignant neoplasm of cervix (principal)
CPT/HCPCS: 87491; 87591; 88142